=== PATIENT | female | born 1955 | race Two or more races ===

== ENCOUNTER 2024-07-10 14:05 | Emergency (ER) | payer OTHER ==
[~2024-07-10] VITALS: Ht 160 cm; Wt 75.3 kg
[2024-07-10] MEDS ORDERED: ROSUVASTATIN CA10 MG PO (15:40)
[2024-07-10] MEDS ORDERED: IRBESARTAN-HCT1 EACH PO (15:40)
[2024-07-10 17:21] LABS: HEMATOCRIT 39.3 % (36.0-45.00); HEMOGLOBIN 13.3 g/dL (12.0-15.00); MEAN CELL VOLUME 87.8 fL (80.00-100.00); MEAN CORPUSCULAR HEMOGLOBIN 29.8 pg (27.00-32.0); MEAN CORPUSCULAR HGB CONC 33.9 g/dl (32.0-36.0); PLATELET COUNT 231 K/uL (150-450); RED BLOOD COUNT 4.47 M/uL (4.00-6.00)
[2024-07-10 17:40] LABS: ALBUMIN 3.6 gm/dL (3.4-5.0); BILIRUBIN TOTAL 0.33 mg/dL (0.3-1.2); CALCIUM 9.7 mg/dL (8.5-10.1); CREATININE SERUM 0.8 mg/dL (0.55-1.02); GFR 71.33; GLOBULINA 5.1 G/DL (2.4-3.5); POTASSIUM 4.25 mEq/L (3.5-5.1); TOTAL PROTEIN 8.7 gm/dL (6.4-8.2)
[2024-07-10 17:50] LABS: PH,URINE 5.5 (5.0-8.0); URINE APPEARANCE Clear; URINE BILIRRUBIN Negative (NEGATIVE); URINE BLOOD Trace; URINE GLUCOSE Negative (NEGATIVE); URINE KETONE Negative (NEGATIVE); URINE LEUKOCYTE Small; URINE NITRATE Negative; URINE PROTEIN Negative (NEGATIVE); URINE UROBILINOGEN 0.2 E.U./dl
[2024-07-10 17:51] LABS: URINE BACTERIA 964.4 uL (0.0-1933); URINE EPITHELIAL CELLS 64.5 uL (0.0-38.8); URINE RBC 4.5 uL (0.0-20.8); URINE WBC 70.7 uL (0.0-23.2)
[2024-07-10] MEDS ORDERED: MACROBID 100 M100 MG PO (19:22)
[2024-07-10] MEDS ORDERED: CEFTRIAXONE SODIUM 1,000 MG VIAL IM ONE (19:30)
[2024-07-10] MEDS ORDERED: CEFTRIAXONE SODIUM 1,000 MG VIAL ONE (19:47)
[2024-07-10] MEDS ORDERED: LIDOCAINE HCL 1% 10ML VIAL ONE (19:47)
== END 2024-07-10 20:29 | disposition home or self-care (01) ==
LOC: ER 14:07
PROVIDERS: Preventive Medicine Public Health & General Preventive Medicine
DX: N39.0 Urinary tract infection, site not specified (principal); R30.0 Dysuria; I10 Essential (primary) hypertension
CPT/HCPCS: 36415; 96372; 99282; J0696